=== PATIENT | female | born 1965 | race Caucasian/White ===

== ENCOUNTER → 2023-11-25 11:52 | Outpatient (REF) | payer OTHER, SELFPAY | LOC: CPAP 11:52 | PROVIDERS: ATTENDING PHYSICIAN Obstetrics & Gynecology | DX: Z01.419 Encounter for gynecological examination (general) (routine) without abnormal findings (principal); N95.0 Postmenopausal bleeding | CPT/HCPCS: 88305; G0123 ==

== ENCOUNTER → 2023-12-23 08:21 | Outpatient (REF) | payer OTHER, SELFPAY | LOC: HWRAD 08:21 | PROVIDERS: ATTENDING PHYSICIAN Obstetrics & Gynecology; FAMILY PHYSICIAN Nurse Practitioner | DX: N95.0 Postmenopausal bleeding (principal) | CPT/HCPCS: 76830; 76856 ==

== ENCOUNTER 2024-01-19 06:35 | Day surgery (SDC) | payer OTHER, SELFPAY ==
[2024-01-13 09:06] VITALS: BMI 19.8
[2024-01-13 10:08] LABS: Hematocrit 44.9 % (37.0-47.0); Mean Corp Hgb Conc. 33.4 g/dL (33.0-37.0); Mean Corpuscular Hgb 30.2 pg (27.0-31.0); Mean Corpuscular Volume 90.3 fL (81.0-99.0); Mean Platelet Volume 10.1 fL (7.4-10.4); Platelet Count 317 10^3/uL (130-400); Red Blood Cell Count 4.97 10^6/uL (4.20-5.40); Red Cell Dist. Width 12.9 % (11.5-14.5); White Blood Cell Count 7.1 10^3/uL (4.8-10.8)
[2024-01-13 10:27] LABS: Blood Urea Nitrogen 18 mg/dl (7-17); Calcium 9.3 mg/dl (8.4-10.2); Carbon Dioxide 25 mmol/L (22-30); Chloride 108 mmol/L (98-107); Estimated Creatinine Clearance 81 ml/min; Glucose 93 mg/dl (70-99); Potassium 4.7 mmol/L (3.5-5.1); Sodium 138 mmol/L (135-145); eGFR > 60.00
[2024-01-19] VITALS (11 sets, daily range): BP systolic 99–139; BP diastolic 64–83; BMI 19.8
[2024-01-19] MEDS: NORMOSOL-R 1000 IV (08:15)
[2024-01-19] MEDS: Pyridium 200 MG PO (08:17)
[2024-01-19] MEDS: TYLENOL 1000 MG PO (08:46)
[2024-01-19] MEDS: TRANSDERM-SCOP 1 PATCH TRANSDERM (08:46)
[2024-01-19] MEDS: DILAUDID 0.5 MG IV (11:36)
[2024-01-19] MEDS: DILAUDID 0.25 MG IV (11:44)
[2024-01-19] MEDS: ROXICODONE 5 MG PO (13:31)
== END 2024-01-19 13:36 | disposition home or self-care (01) ==
LOC: SDS 06:35
PROVIDERS: ATTENDING PHYSICIAN Obstetrics & Gynecology; FAMILY PHYSICIAN Nurse Practitioner
DX: N95.0 Postmenopausal bleeding (principal); N72 Inflammatory disease of cervix uteri; N80.03 Adenomyosis of the uterus; D25.9 Leiomyoma of uterus, unspecified
CPT/HCPCS: 58571; 88307; 36415; 80048; 85027; 86850; 86900; 86901; 93005